=== PATIENT | male | born 1970 | race Caucasian/White ===

== ENCOUNTER 2021-11-18 08:45 | Inpatient (IN) | payer MEDICAID ==
[2021-12-02] MEDS ORDERED: Acetaminophen 500 MG Tab PO ONE (06:30)
[2021-12-02] MEDS ORDERED: Celecoxib 200 MG Cap PO ONE (06:30)
[2021-12-02] MEDS ORDERED: Scopolamine 1.5 MG Transdermal Patch TRDERM SCH (06:30)
[2021-12-02] MEDS ORDERED: Meropenem 500 MG SDV ONE (06:57)
[2021-12-02] MEDS ORDERED: Lidocaine 1% with EPINEPHrine 1:100,000 50 ML MDV ONE (06:57)
[2021-12-02] MEDS ORDERED: Bupivacaine 0.5% 50 ML MDV ONE (06:57)
[2021-12-02] MEDS ORDERED: Succinylcholine 200 MG/10 ML MDV ONE (06:58)
[2021-12-02] MEDS ORDERED: Dexamethasone 4 MG/ML SDV ONE (06:58)
[2021-12-02] MEDS ORDERED: Ondansetron 4 MG/2 ML SDV ONE (06:58)
[2021-12-02] MEDS ORDERED: Rocuronium 50 MG/5 ML Vial ONE (06:58)
[2021-12-02] MEDS ORDERED: Glycopyrrolate 0.2 MG/ML 5 ML MDV ONE (06:58)
[2021-12-02] MEDS ORDERED: Neostigmine Methylsulfate 1 MG/ML 5 ML Syringe ONE (06:58)
[2021-12-02] MEDS ORDERED: Propofol 200 MG/20 ML SDV ONE (06:58)
[2021-12-02] MEDS ORDERED: fentaNYL 250 MCG/5 ML SDV ONE ×3 (06:59→09:09)
[2021-12-02] MEDS ORDERED: Dextrose 5%-Lactated Ringers 1,000 ML IV SCH ×2 (07:00→12:00)
[2021-12-02 07:01] LABS: HEMOGLOBIN A1C 5.8 % (4.5-6.2)
[2021-12-02] MEDS ORDERED: cefOXitin 2 GM Vial ONE (07:05)
[2021-12-02 07:16] LABS: ESTIMATED GFR > 60 (>60)
[2021-12-02] MEDS ORDERED: Ketamine 20 MG in Sodium Chloride 0.9% 19.8 ML IV SCH (08:00)
[2021-12-02] MEDS ORDERED: Ketamine 500 MG/5 ML MDV IV SCH (08:00)
[2021-12-02] MEDS ORDERED: cefOXitin 2 GM in Sodium Chloride 0.9% 50 ML IV ONE (08:00)
[2021-12-02] MEDS: Lactated Ringers 1,000 ML IV SCH (11:30)
[2021-12-02] MEDS ORDERED: Insulin Lispro 100 Unit/ML 3 ML KwikPen SUBCUT PRN (11:55)
[2021-12-02] MEDS ORDERED: Cyclobenzaprine 10 MG Tab PO PRN (11:57)
[2021-12-02] MEDS ORDERED: Ondansetron 4 MG/2 ML SDV IVPUSH PRN (12:00)
[2021-12-02] MEDS ORDERED: hydrOXYzine HCL 100 MG/2 ML SDV IM PRN (12:00)
[2021-12-02] MEDS ORDERED: diphenhydrAMINE 50 MG/ML SDV IVPUSH PRN (12:00)
[2021-12-02] MEDS ORDERED: oxyCODONE 5 MG Tab PO PRN (12:00)
[2021-12-02] MEDS ORDERED: HYDROmorphone 0.5 MG/0.5 ML Syringe IVPUSH PRN (12:00)
[2021-12-02] MEDS ORDERED: Labetalol 20 MG/4 ML Syringe IVPUSH PRN (12:00)
[2021-12-02] MEDS ORDERED: Acetaminophen 500 MG Tab PO PRN (12:00)
[2021-12-02] MEDS ORDERED: 50% Dextrose in Water 50 ML Syringe IVPUSH PRN (12:00)
[2021-12-02] MEDS ORDERED: Albuterol/Ipratropium 3.0-0.5 MG/3 ML Neb Soln INH PRN (12:00)
[2021-12-02] MEDS ORDERED: Metoclopramide 10 MG/2 ML SDV IVPUSH PRN (12:00)
[2021-12-02] MEDS ORDERED: traMADol 50 MG Tab PO PRN (12:00)
[2021-12-02] MEDS ORDERED: HYDROmorphone 1 MG/ML Syringe IV PRN (12:00)
[2021-12-02] MEDS ORDERED: Glucagon,Human Recombinant 1 MG Vial IM PRN (12:00)
[2021-12-02] MEDS ORDERED: Pantoprazole 40 MG Vial IVPUSH SCH (14:00)
[2021-12-02] MEDS: cefOXitin 2 GM in Sodium Chloride 0.9% 50 ML IV SCH ×2 (14:16→19:57)
[2021-12-02] MEDS: Albuterol/Ipratropium 3.0-0.5 MG/3 ML Neb Soln INH SCH ×2 (14:19→21:10)
[2021-12-02] MEDS: Acetaminophen 500 MG Tab PO SCH ×2 (14:20→21:09)
[2021-12-02] MEDS: Insulin Lispro 100 Unit/ML 3 ML KwikPen SUBCUT SCH ×2 (15:19→22:35)
[2021-12-02] MEDS ORDERED: MVI, Adult with Vitamin K 10 ML, Thiamine 200 MG, Zinc/Copper/Manganese/Selenium 1 ML i... IV SCH ×4 (16:00)
[2021-12-02] MEDS: metFORMIN 500 MG Tab PO SCH (16:53)
[2021-12-02] MEDS: Enoxaparin 60 MG/0.6 ML Syringe SUBCUT SCH (17:49)
[2021-12-03] MEDS: cefOXitin 2 GM in Sodium Chloride 0.9% 50 ML IV SCH ×3 (02:25→14:04)
[2021-12-03] MEDS ORDERED: Iopamidol 612 MG/ML 50 ML SDV PO STA (02:26)
[2021-12-03] MEDS: Lactated Ringers 1,000 ML IV SCH ×2 (03:52→12:40)
[2021-12-03] MEDS: Insulin Lispro 100 Unit/ML 3 ML KwikPen SUBCUT SCH ×4 (04:31→22:06)
[2021-12-03] MEDS: Acetaminophen 500 MG Tab PO SCH ×3 (06:01→22:06)
[2021-12-03] MEDS: Enoxaparin 60 MG/0.6 ML Syringe SUBCUT SCH ×2 (06:03→17:28)
[2021-12-03] MEDS ORDERED: hydrOXYzine HCl 25 MG Tab PO PRN (07:16)
[2021-12-03] MEDS ORDERED: Ondansetron 4 MG Tab.DIS PO PRN (07:16)
[2021-12-03] MEDS: Albuterol/Ipratropium 3.0-0.5 MG/3 ML Neb Soln INH SCH ×4 (07:30→22:10)
[2021-12-03] MEDS: metFORMIN 500 MG Tab PO SCH ×3 (07:56→17:55)
[2021-12-03] MEDS: Celecoxib 200 MG Cap PO SCH ×2 (08:01→22:05)
[2021-12-03] MEDS: Furosemide 40 MG Tab PO SCH (08:02)
[2021-12-03] MEDS: Metoprolol Succinate 50 MG Tab.ER PO SCH (08:02)
[2021-12-03] MEDS ORDERED: Warfarin 5 MG Tab PO ONE (09:00)
[2021-12-03] MEDS: SCOPOLAMINE PATCH CHECK TOP SCH (09:22)
[2021-12-03] MEDS ORDERED: MVI, Adult with Vitamin K 10 ML, Thiamine 200 MG, Zinc/Copper/Manganese/Selenium 1 ML i... IV SCH ×4 (16:00)
[2021-12-03] MEDS: Pantoprazole 40 MG Delayed-Release Granules 1 Packet PO SCH (16:35)
[2021-12-04] MEDS: Lactated Ringers 1,000 ML IV SCH ×2 (02:17→09:18)
[2021-12-04] MEDS: Insulin Lispro 100 Unit/ML 3 ML KwikPen SUBCUT SCH ×4 (05:23→21:15)
[2021-12-04] MEDS: Enoxaparin 60 MG/0.6 ML Syringe SUBCUT SCH ×2 (06:28→18:00)
[2021-12-04] MEDS: Acetaminophen 500 MG Tab PO SCH ×3 (06:28→21:19)
[2021-12-04] MEDS: Albuterol/Ipratropium 3.0-0.5 MG/3 ML Neb Soln INH SCH ×4 (07:18→20:30)
[2021-12-04] MEDS: SCOPOLAMINE PATCH CHECK TOP SCH (08:13)
[2021-12-04] MEDS: Furosemide 40 MG Tab PO SCH (08:19)
[2021-12-04] MEDS: Hyoscyamine 0.125 MG Tab.SL SL SCH ×4 (08:19→20:30)
[2021-12-04] MEDS: Ondansetron 4 MG Tab.DIS PO SCH ×3 (08:19→20:30)
[2021-12-04] MEDS: Metoprolol Succinate 50 MG Tab.ER PO SCH (08:19)
[2021-12-04] MEDS: Celecoxib 200 MG Cap PO SCH ×2 (08:19→20:30)
[2021-12-04] MEDS ORDERED: Cyanocobalamin (Vitamin B12) 1,000 MCG/ML SDV IM ONE (09:00)
[2021-12-04 09:02] LABS: ESTIMATED GFR > 60 (>60)
[2021-12-04] MEDS ORDERED: Sodium Chloride 0.9% 500 ML IV ONE (09:02)
[2021-12-04] MEDS ORDERED: Metoprolol Tartrate 5 MG/5 ML SDV IVPUSH ONE (12:37)
[2021-12-04] MEDS ORDERED: Warfarin 5 MG Tab PO ONE (13:00)
[2021-12-04] MEDS ORDERED: Diltiazem 25 MG/5 ML SDV IVPUSH ONE ×2 (13:52→15:44)
[2021-12-04] MEDS: Diltiazem 100 MG in Sodium Chloride 0.9% 100 ML IV SCH ×2 (15:24→23:11)
[2021-12-04] MEDS: Pantoprazole 40 MG Delayed-Release Granules 1 Packet PO SCH (16:28)
[2021-12-04] MEDS ORDERED: Digoxin 500 MCG/2 ML Amp IVPUSH ONE (17:10)
[2021-12-04] MEDS ORDERED: Sodium Chloride 0.9% 100 ML IV SCH (18:30)
[2021-12-04] MEDS ORDERED: Iopamidol 755 Mg/ML 100 ML Bottle IV SCH (18:30)
[2021-12-05] MEDS: Ondansetron 4 MG Tab.DIS PO SCH (02:10)
[2021-12-05] MEDS: Insulin Lispro 100 Unit/ML 3 ML KwikPen SUBCUT SCH ×4 (05:27→23:55)
[2021-12-05] MEDS: Enoxaparin 60 MG/0.6 ML Syringe SUBCUT SCH ×2 (05:42→17:03)
[2021-12-05] MEDS: Acetaminophen 500 MG Tab PO SCH ×3 (05:42→21:23)
[2021-12-05] MEDS ORDERED: Ondansetron 4 MG Tab.DIS PO PRN (07:25)
[2021-12-05] MEDS: Hyoscyamine 0.125 MG Tab.SL SL SCH ×4 (08:00→21:23)
[2021-12-05] MEDS: Albuterol/Ipratropium 3.0-0.5 MG/3 ML Neb Soln INH SCH ×4 (08:04→21:23)
[2021-12-05] MEDS: Magnesium Sulfate/Water 2 GM/50 ML BAG IV SCH ×3 (08:20→19:53)
[2021-12-05] MEDS: Furosemide 40 MG Tab PO SCH (08:25)
[2021-12-05] MEDS: Metoprolol Succinate 50 MG Tab.ER PO SCH (08:27)
[2021-12-05] MEDS: Celecoxib 200 MG Cap PO SCH ×2 (08:58→21:23)
[2021-12-05] MEDS: Diltiazem 120 MG Cap.CD PO SCH (10:37)
[2021-12-05] MEDS ORDERED: Warfarin 5 MG Tab PO ONE (13:00)
[2021-12-05] MEDS ORDERED: Furosemide 40 MG Tab PO ONE (14:00)
[2021-12-05] MEDS ORDERED: Furosemide 20 MG Tab PO ONE (14:00)
[2021-12-05] MEDS: Pantoprazole 40 MG Delayed-Release Granules 1 Packet PO SCH (17:03)
[2021-12-06] MEDS: Magnesium Sulfate/Water 2 GM/50 ML BAG IV SCH ×3 (01:54→14:33)
[2021-12-06] MEDS: Insulin Lispro 100 Unit/ML 3 ML KwikPen SUBCUT SCH ×2 (04:39→11:24)
[2021-12-06 05:23] LABS: ESTIMATED GFR > 60 (>60)
[2021-12-06] MEDS: Acetaminophen 500 MG Tab PO SCH ×2 (05:34→14:32)
[2021-12-06] MEDS: Enoxaparin 60 MG/0.6 ML Syringe SUBCUT SCH (05:35)
[2021-12-06] MEDS: Albuterol/Ipratropium 3.0-0.5 MG/3 ML Neb Soln INH SCH ×2 (07:29→10:36)
[2021-12-06] MEDS: Hyoscyamine 0.125 MG Tab.SL SL SCH ×2 (07:39→12:27)
[2021-12-06] MEDS: Potassium Chloride 10 MEQ Cap.ER PO SCH ×2 (07:40→12:27)
[2021-12-06] MEDS: Celecoxib 200 MG Cap PO SCH (09:29)
[2021-12-06] MEDS: Furosemide 40 MG Tab PO SCH (09:29)
[2021-12-06] MEDS: Metoprolol Succinate 50 MG Tab.ER PO SCH (09:30)
[2021-12-06] MEDS: Diltiazem 120 MG Cap.CD PO SCH (09:30)
[2021-12-06] MEDS ORDERED: Warfarin 5 MG Tab PO SCH (13:00)
== END 2021-12-06 15:21 | disposition home or self-care (01) | DRG 620 ==
LOC: JP.SDS 12-02 06:23 → EDSTATUS 12-02 08:15 → JP.ICU 12-02 10:31
PROVIDERS: ADMIT Surgery; ATTEND Surgery
PROC: 0DB64Z3 Excision of Stomach, Percutaneous Endoscopic Approach, Vertical (ICD-10-PCS; principal; 2021-12-02)
PROC: 0BQT4ZZ Repair Diaphragm, Percutaneous Endoscopic Approach (ICD-10-PCS; 2021-12-02)
PROC: 0FB04ZX Excision of Liver, Percutaneous Endoscopic Approach, Diagnostic (ICD-10-PCS; 2021-12-02)
DX: E66.01 Morbid (severe) obesity due to excess calories (principal); I13.0 Hypertensive heart and chronic kidney disease with heart failure and stage 1 through stage 4 chronic kidney disease, or unspecified chronic kidney disease; R16.0 Hepatomegaly, not elsewhere classified; K44.9 Diaphragmatic hernia without obstruction or gangrene; Z20.822 Contact with and (suspected) exposure to COVID-19; I48.91 Unspecified atrial fibrillation; E11.9 Type 2 diabetes mellitus without complications; D50.9 Iron deficiency anemia, unspecified; I87.2 Venous insufficiency (chronic) (peripheral); G47.30 Sleep apnea, unspecified; R00.0 Tachycardia, unspecified; I50.9 Heart failure, unspecified; N18.2 Chronic kidney disease, stage 2 (mild); Z68.44 Body mass index [BMI] 60.0-69.9, adult; Z79.899 Other long term (current) drug therapy; Z86.711 Personal history of pulmonary embolism; Z79.01 Long term (current) use of anticoagulants
CPT/HCPCS: 36415; 71275; 74240; 74240-26; 80053; 82947; 83036; 83735; 83880; 84100; 84484; 85027; 85610; 86850; 86900; 86901; 88304; 88307; 88313; 93005; 94640; A9270-GY; C9113; J0171; J0330; J0694; J1100; J1650; J2185; J2405; J2704; J2710; J2795; J3010; J3411; J3420; J3475; J3490; J7040; J7120; J7121; J7620; Q0162; Q9967; U0002

== ENCOUNTER 2022-08-11 08:22 | Inpatient (IN) | payer MEDICAID ==
[~2022-08-11 08:22] MED LIST: Bupivacaine 0.5% 50 ML MDV ONE; Dexamethasone 4 MG/ML SDV ONE; Glycopyrrolate 0.2 MG/ML 5 ML MDV ONE; Lidocaine 1% with EPINEPHrine 1:100,000 50 ML MDV ONE; Neostigmine Methylsulfate 1 MG/ML 5 ML Syringe ONE; Ondansetron 4 MG/2 ML SDV ONE; Propofol 200 MG/20 ML SDV ONE; Rocuronium 50 MG/5 ML Vial ONE; Succinylcholine 200 MG/10 ML MDV ONE; cefOXitin 2 GM Vial ONE
[2022-08-11] MEDS ORDERED: Scopolamine 1.5 MG Transdermal Patch TOP ONE (08:30)
[2022-08-11] MEDS ORDERED: Acetaminophen 500 MG Tab PO ONE (08:30)
[2022-08-11] MEDS ORDERED: Celecoxib 200 MG Cap PO ONE (08:30)
[2022-08-11] MEDS ORDERED: Dextrose 5%-Lactated Ringers 1,000 ML IV SCH (09:00)
[2022-08-11 09:14] LABS: HEMOGLOBIN A1C 5.3 % (4.5-6.2)
[2022-08-11] MEDS ORDERED: cefOXitin 2 GM in Sodium Chloride 0.9% 50 ML IV ONE (09:30)
[2022-08-11] MEDS ORDERED: Albuterol/Ipratropium 3.0-0.5 MG/3 ML Neb Soln NEB ONE (09:30)
[2022-08-11] MEDS ORDERED: Ketamine 20 MG in Sodium Chloride 0.9% 19.8 ML IV SCH (09:45)
[2022-08-11] MEDS ORDERED: Ketamine 500 MG/5 ML MDV IV SCH (09:45)
[2022-08-11] MEDS ORDERED: fentaNYL 250 MCG/5 ML SDV ONE (10:38)
[2022-08-11] MEDS ORDERED: Lactated Ringers 1,000 ML ONE (10:51)
[2022-08-11] MEDS ORDERED: hydrOXYzine HCL 100 MG/2 ML SDV IM ONE (12:35)
[2022-08-11] MEDS ORDERED: Cyclobenzaprine 10 MG Tab PO PRN (13:51)
[2022-08-11] MEDS ORDERED: Acetaminophen 500 MG Tab PO PRN (14:00)
[2022-08-11] MEDS ORDERED: Albuterol/Ipratropium 3.0-0.5 MG/3 ML Neb Soln INH PRN (14:00)
[2022-08-11] MEDS ORDERED: traMADol 50 MG Tab PO PRN (14:00)
[2022-08-11] MEDS ORDERED: HYDROmorphone 0.5 MG/0.5 ML Syringe IVPUSH PRN (14:00)
[2022-08-11] MEDS ORDERED: HYDROmorphone 1 MG/ML Syringe IV PRN (14:00)
[2022-08-11] MEDS ORDERED: Ondansetron 4 MG/2 ML SDV IVPUSH PRN (14:00)
[2022-08-11] MEDS ORDERED: Metoclopramide 10 MG/2 ML SDV IVPUSH PRN (14:00)
[2022-08-11] MEDS ORDERED: diphenhydrAMINE 50 MG/ML SDV IVPUSH PRN (14:00)
[2022-08-11] MEDS ORDERED: Labetalol 20 MG/4 ML Syringe IVPUSH PRN (14:00)
[2022-08-11] MEDS ORDERED: oxyCODONE 5 MG Tab PO PRN (14:00)
[2022-08-11] MEDS ORDERED: hydrOXYzine HCL 100 MG/2 ML SDV IM PRN (14:00)
[2022-08-11] MEDS: SCOPOLAMINE PATCH CHECK TOP SCH (15:03)
[2022-08-11] MEDS: Acetaminophen 500 MG Tab PO SCH ×2 (15:03→21:08)
[2022-08-11] MEDS: Pantoprazole 40 MG Vial IVPUSH SCH (15:03)
[2022-08-11] MEDS: cefOXitin 2 GM in Sodium Chloride 0.9% 50 ML IV SCH ×2 (16:05→21:06)
[2022-08-11] MEDS: MVI, Adult with Vitamin K 10 ML, Thiamine 200 MG, Zinc/Copper/Manganese/Selenium 1 ML i... IV SCH ×4 (16:47)
[2022-08-11] MEDS: Magnesium Sulfate/Water 2 GM in Premix Bag 1 BAG IV SCH ×2 (16:48→21:47)
[2022-08-11] MEDS: Heparin Sodium 5,000 Units/ML Vial SUBCUT SCH (19:03)
[2022-08-11] MEDS: Dextrose 5%-Lactated Ringers 1,000 ML IV SCH (22:53)
[2022-08-12] MEDS: Heparin Sodium 5,000 Units/ML Vial SUBCUT SCH ×3 (02:06→17:40)
[2022-08-12] MEDS ORDERED: Iopamidol 612 MG/ML 30 ML SDV PO STA (03:30)
[2022-08-12] MEDS: cefOXitin 2 GM in Sodium Chloride 0.9% 50 ML IV SCH ×4 (04:34→21:22)
[2022-08-12] MEDS: Dextrose 5%-Lactated Ringers 1,000 ML IV SCH (04:36)
[2022-08-12] MEDS: Magnesium Sulfate/Water 2 GM in Premix Bag 1 BAG IV SCH ×4 (05:20→22:13)
[2022-08-12] MEDS: Acetaminophen 500 MG Tab PO SCH ×3 (05:31→21:23)
[2022-08-12] MEDS ORDERED: Ondansetron 4 MG Tab.DIS PO PRN (07:32)
[2022-08-12] MEDS ORDERED: Dextrose 5%-Lactated Ringers 1,000 ML IV SCH (07:45)
[2022-08-12] MEDS: Metoprolol Succinate 50 MG Tab.ER PO SCH (09:41)
[2022-08-12] MEDS: Furosemide 40 MG Tab PO SCH (09:41)
[2022-08-12] MEDS: Celecoxib 200 MG Cap PO SCH ×2 (09:41→21:22)
[2022-08-12] MEDS: SCOPOLAMINE PATCH CHECK TOP SCH (09:41)
[2022-08-12] MEDS: Pantoprazole 40 MG Vial IVPUSH SCH (13:17)
[2022-08-12] MEDS: MVI, Adult with Vitamin K 10 ML, Thiamine 200 MG, Zinc/Copper/Manganese/Selenium 1 ML i... IV SCH ×4 (16:18)
[2022-08-13] MEDS: Heparin Sodium 5,000 Units/ML Vial SUBCUT SCH ×2 (02:07→09:59)
[2022-08-13] MEDS: Magnesium Sulfate/Water 2 GM in Premix Bag 1 BAG IV SCH (05:10)
[2022-08-13] MEDS: Acetaminophen 500 MG Tab PO SCH (05:11)
[2022-08-13] MEDS ORDERED: Pantoprazole 40 MG Tab.CR PO SCH (07:30)
[2022-08-13] MEDS: Furosemide 40 MG Tab PO SCH (08:10)
[2022-08-13] MEDS: Metoprolol Succinate 50 MG Tab.ER PO SCH (08:10)
[2022-08-13] MEDS: Celecoxib 200 MG Cap PO SCH (08:10)
[2022-08-13] MEDS ORDERED: Cyanocobalamin (Vitamin B12) 1,000 MCG/ML SDV IM ONE (09:00)
[2022-08-13] MEDS ORDERED: Magnesium Hydroxide 400 MG/5 ML Susp 30 ML Cup PO PRN (09:27)
[2022-08-13] MEDS ORDERED: Apixaban 5 MG Tab PO ONE (09:45)
[2022-08-13] MEDS: SCOPOLAMINE PATCH CHECK TOP SCH (10:07)
== END 2022-08-13 10:08 | disposition home or self-care (01) | DRG 621 ==
LOC: JP.SDS 08:22 → JP.MS 12:20
PROVIDERS: ADMIT Surgery; ATTEND Surgery
PROC: 0D194ZB Bypass Duodenum to Ileum, Percutaneous Endoscopic Approach (ICD-10-PCS; principal; 2022-08-11)
PROC: 0BQT4ZZ Repair Diaphragm, Percutaneous Endoscopic Approach (ICD-10-PCS; 2022-08-11)
DX: E66.01 Morbid (severe) obesity due to excess calories (principal); Z68.42 Body mass index [BMI] 45.0-49.9, adult; E11.69 Type 2 diabetes mellitus with other specified complication; I12.9 Hypertensive chronic kidney disease with stage 1 through stage 4 chronic kidney disease, or unspecified chronic kidney disease; N18.2 Chronic kidney disease, stage 2 (mild); E11.22 Type 2 diabetes mellitus with diabetic chronic kidney disease; K44.9 Diaphragmatic hernia without obstruction or gangrene; G47.33 Obstructive sleep apnea (adult) (pediatric); Z86.711 Personal history of pulmonary embolism; Z79.01 Long term (current) use of anticoagulants; Z79.899 Other long term (current) drug therapy
CPT/HCPCS: 36415; 74240; 74240-26; 82947; 83036; 83735; 83880; 84100; 86850; 86900; 86901; 94640; A9270-GY; C9113; J0171; J0330; J0694; J1100; J1644; J2405; J2704; J2710; J2795; J3010; J3410; J3411; J3420; J3475; J3490; J7120; J7121; J7620; Q9967

== ENCOUNTER 2022-08-22 15:18 | Inpatient (IN) | payer MEDICAID ==
[2022-08-22] MEDS ORDERED: HYDROmorphone 1 MG/ML Syringe IVPUSH ONE (15:35)
[2022-08-22] MEDS ORDERED: Lactated Ringers 500 ML IV ONE (16:21)
[2022-08-22] MEDS ORDERED: Polyethylene Glycol 3350 Powder 17 GM Packet PO PRN (19:13)
[2022-08-22] MEDS ORDERED: Glucose Gel 15 GM in 37.5 GM Tube PO PRN (19:13)
[2022-08-22] MEDS ORDERED: SEMAGLUTIDE 2.4 MG/0.75 ML SQ SCH (19:13)
[2022-08-22] MEDS ORDERED: Acetaminophen 325 MG Tab PO PRN (19:13)
[2022-08-22] MEDS ORDERED: 50% Dextrose in Water 50 ML Syringe IV PRN (19:13)
[2022-08-22] MEDS ORDERED: Sodium Chloride 0.9% 10 ML Syringe FLUSH PRN (19:13)
[2022-08-22] MEDS ORDERED: oxyCODONE 5 MG Tab PO PRN (19:13)
[2022-08-22] MEDS ORDERED: Ondansetron 4 MG/2 ML SDV IV PRN (19:13)
[2022-08-22] MEDS ORDERED: Albuterol 0.083% 2.5 MG/3 ML Neb Soln NEB PRN (19:13)
[2022-08-22] MEDS ORDERED: Pantoprazole 40 MG Vial ONE (19:22)
[2022-08-22] MEDS: Pantoprazole 40 MG Vial IV SCH ×2 (19:23→21:22)
[2022-08-22] MEDS: Calcium Carbonate 500 MG Tab.Chew PO PRN (19:43)
[2022-08-22] MEDS: Linezolid 600 MG in Premix Bag 1 BAG IV SCH (19:59)
[2022-08-22] MEDS: Lactated Ringers 1,000 ML IV SCH (20:03)
[2022-08-22] MEDS: Insulin Lispro 100 Unit/ML 3 ML KwikPen SUBCUT SCH (20:20)
[2022-08-22] MEDS: Piperacillin/Tazobactam 3.375 GM in Sodium Chloride 0.9% 50 ML IV SCH (21:06)
[2022-08-22] MEDS: HYDROmorphone 0.5 MG/0.5 ML Syringe IVPUSH PRN (23:58)
[2022-08-23] MEDS: Piperacillin/Tazobactam 3.375 GM in Sodium Chloride 0.9% 50 ML IV SCH (02:35)
[2022-08-23 05:00] LABS: ESTIMATED GFR 47 mL/min (>60)
[2022-08-23] MEDS: Lactated Ringers 1,000 ML IV SCH ×2 (06:02→15:31)
[2022-08-23] MEDS: Insulin Lispro 100 Unit/ML 3 ML KwikPen SUBCUT SCH ×4 (07:13→20:07)
[2022-08-23] MEDS ORDERED: Sodium Chloride 0.9% 10 ML Syringe FLUSH PRN (07:20)
[2022-08-23] MEDS ORDERED: Iopamidol 612 MG/ML 30 ML SDV PO ONE (07:20)
[2022-08-23] MEDS ORDERED: Sodium Chloride 0.9% 50 ML IV ONE (07:20)
[2022-08-23] MEDS ORDERED: Iopamidol 612 MG/ML 150 ML Bottle IV SCH (07:30)
[2022-08-23] MEDS: Piperacillin/Tazobactam/Dext 3.375 GM in Premix Bag 1 BAG IV SCH ×3 (07:45→19:59)
[2022-08-23] MEDS: Linezolid 600 MG in Premix Bag 1 BAG IV SCH ×2 (08:18→20:03)
[2022-08-23] MEDS: Pantoprazole 40 MG Vial IV SCH ×2 (09:31→21:35)
[2022-08-23] MEDS: HYDROmorphone 0.5 MG/0.5 ML Syringe IVPUSH PRN (09:44)
[2022-08-23] MEDS: Calcium Carbonate 500 MG Tab.Chew PO PRN (09:49)
[2022-08-23] MEDS: Lactobacillus Rhamnosus GG (Probiotic) Cap PO SCH ×2 (09:51→21:36)
[2022-08-24] MEDS: Piperacillin/Tazobactam/Dext 3.375 GM in Premix Bag 1 BAG IV SCH ×4 (01:31→20:32)
[2022-08-24 05:35] LABS: ESTIMATED GFR 80 mL/min (>60)
[2022-08-24] MEDS: Calcium Carbonate 500 MG Tab.Chew PO PRN (07:40)
[2022-08-24] MEDS: Insulin Lispro 100 Unit/ML 3 ML KwikPen SUBCUT SCH ×4 (08:37→20:54)
[2022-08-24] MEDS: Linezolid 600 MG in Premix Bag 1 BAG IV SCH ×2 (08:38→19:21)
[2022-08-24] MEDS: Lactobacillus Rhamnosus GG (Probiotic) Cap PO SCH ×2 (09:57→20:22)
[2022-08-24] MEDS: Pantoprazole 40 MG Vial IV SCH (09:57)
[2022-08-24] MEDS ORDERED: Coagulation Factor VIIa Recombinant (per MCG) 2 MG Vial IVPUSH ONE ×4 (10:30→20:00)
[2022-08-24] MEDS ORDERED: Tranexamic Acid 1,000 MG in Sodium Chloride 0.9% 500 ML IV ONE (10:35)
[2022-08-24] MEDS ORDERED: Tranexamic Acid 1,000 MG in Sodium Chloride 0.9% 50 ML IV ONE ×2 (10:45→15:00)
[2022-08-24] MEDS ORDERED: Pantoprazole 40 MG Tab.CR PO SCH (16:30)
[2022-08-24] MEDS ORDERED: Pantoprazole 40 MG Vial IV SCH (21:00)
[2022-08-25] MEDS: Piperacillin/Tazobactam/Dext 3.375 GM in Premix Bag 1 BAG IV SCH ×4 (02:19→20:02)
[2022-08-25 04:59] LABS: ESTIMATED GFR 101 mL/min (>60)
[2022-08-25] MEDS ORDERED: Potassium Phosphates 3 mMole/ML 15 ML SDV IV ONE (07:30)
[2022-08-25] MEDS: Insulin Lispro 100 Unit/ML 3 ML KwikPen SUBCUT SCH ×4 (07:33→22:00)
[2022-08-25] MEDS: Pantoprazole 40 MG Tab.CR PO SCH ×2 (07:57→20:10)
[2022-08-25] MEDS ORDERED: Potassium Chloride 20 MEQ Tab.ER PO ONE (07:58)
[2022-08-25] MEDS ORDERED: Tranexamic Acid 1,000 MG in Sodium Chloride 0.9% 50 ML IV ONE ×3 (08:00→12:30)
[2022-08-25] MEDS: Linezolid 600 MG in Premix Bag 1 BAG IV SCH ×2 (08:16→21:32)
[2022-08-25] MEDS: Lactobacillus Rhamnosus GG (Probiotic) Cap PO SCH ×2 (08:16→20:10)
[2022-08-25] MEDS ORDERED: Coagulation Factor VIIa Recombinant (per MCG) 2 MG Vial IVPUSH SCH (09:00)
[2022-08-25] MEDS: Magnesium Sulfate/Water 2 GM/50 ML BAG IV SCH ×3 (09:19→22:53)
[2022-08-25] MEDS: Potassium Phos in 0.9 % NaCl 15 MMOL in Premix Bag 1 BAG IV SCH ×8 (10:41→20:06)
[2022-08-25] MEDS: Coagulation Factor VIIa Recombinant (per MCG) 2 MG Vial IVPUSH SCH ×2 (12:15→21:23)
[2022-08-26] MEDS: Piperacillin/Tazobactam/Dext 3.375 GM in Premix Bag 1 BAG IV SCH ×2 (02:38→08:35)
[2022-08-26] MEDS: Magnesium Sulfate/Water 2 GM/50 ML BAG IV SCH ×2 (04:05→09:19)
[2022-08-26 05:06] LABS: ESTIMATED GFR 101 mL/min (>60)
[2022-08-26] MEDS: Pantoprazole 40 MG Tab.CR PO SCH (08:36)
[2022-08-26] MEDS: Lactobacillus Rhamnosus GG (Probiotic) Cap PO SCH (08:37)
[2022-08-26] MEDS: Linezolid 600 MG in Premix Bag 1 BAG IV SCH (08:38)
[2022-08-26] MEDS: Insulin Lispro 100 Unit/ML 3 ML KwikPen SUBCUT SCH (08:44)
== END 2022-08-26 13:08 | disposition home or self-care (01) | DRG 862 ==
LOC: JP.ED 15:18 → JP.ICU 17:29 → JP.MS 08-24 01:30
PROVIDERS: ADMIT Hospitalist; ATTEND Hospitalist
DX: T81.44XA Sepsis following a procedure, initial encounter (principal); A41.9 Sepsis, unspecified organism; K92.2 Gastrointestinal hemorrhage, unspecified; N13.2 Hydronephrosis with renal and ureteral calculous obstruction; Z68.44 Body mass index [BMI] 60.0-69.9, adult; E11.9 Type 2 diabetes mellitus without complications; E66.01 Morbid (severe) obesity due to excess calories; K42.9 Umbilical hernia without obstruction or gangrene; Z79.899 Other long term (current) drug therapy; Z86.718 Personal history of other venous thrombosis and embolism; Z79.01 Long term (current) use of anticoagulants; Z86.711 Personal history of pulmonary embolism; Z98.84 Bariatric surgery status
CPT/HCPCS: 36415; 36430; 74177; 74177-26; 80053; 82947; 83605; 83735; 83880; 84100; 85018; 85025; 85027; 86850; 86900; 86901; 86920; 86922; 93970; 93970-26; 96361; 96374; 99222; 99232; 99285; 99285-25; A9270-GY; C9113; J1170; J1815; J2020; J2405; J2543; J3475; J3490; J7120; J7189; P9016; Q9967